=== PATIENT | female | born 1965 | race Hispanic/Latino ===

== ENCOUNTER 2016-08-16 17:20 | Emergency (ER) | payer MEDICAID, OTHER ==
--- NOTE | 2016-08-16 20:30 | Emergency Department Report ---
HPI - General Chief Complaint: Seizure Time Seen by Provider: 08/16/16 20:25 - HPI HPI: This is a 51-year-old female presents to the emergency department by EMS from [facility], where she is being treated for psychiatric reasons, with complaint of 2 witnessed seizures this afternoon. The first one was about 1 PM and the second one was at 2 PM. Both were witnessed by staff member who is currently bedside. Patient is currently awake and alert and says her last known seizures prior to today were about 3-4 months ago. She does have a seizure history. She took her Keppra this morning and then received 3 mg IM of Ativan in route by EMS. Patient has an aura in which she "hears a train" prior to the seizures and she complained of this. She has a history of diabetes and hypertension. No recent travel. Her primary care doctor is a Dr. Keller. Patient's current complaint is that she is very fatigued. The staff member says that the patient did not have a significant postictal period. The seizure appeared most consistent with the patient drooling and having some upper extremity and shaking of the head. ED Past Medical Hx - Past Medical History Hx Hypertension: Yes Hx Diabetes: Yes Hx Seizures: Yes - Social History Smoking Status: Never Smoker ED Review of Systems ROS: Stated complaint: SEIZURE Other details as noted in HPI Comment: All other systems reviewed and negative Constitutional: denies: chills, fever Eyes: denies: eye pain, eye discharge, vision change ENT: denies: ear pain, throat pain Respiratory: denies: cough, shortness of breath, wheezing Cardiovascular: denies: chest pain, palpitations Gastrointestinal: denies: abdominal pain, nausea, diarrhea Genitourinary: denies: urgency, dysuria, discharge Musculoskeletal: denies: back pain, joint swelling, arthralgia Skin: denies: rash, lesions Neurological: other (Seizure). denies: headache, weakness, paresthesias Physical Exam - Physical Exam Vital Signs: Vital Signs 08/16/16 18:27 Temperature 98.3 F Pulse Rate 92 H Respiratory 16 Rate Blood Pressure 129/78 [Right] O2 Sat by Pulse 97 Oximetry Physical Exam: GENERAL: The patient is well-developed well-nourished. HEENT: Normocephalic. Atraumatic. Extraocular motions are intact. Patient has moist mucous membranes. Pupils equal reactive to light bilaterally. Oropharynx clear. Tongue is midline. NECK: Supple. Trachea is midline. CHEST/LUNGS: Clear to auscultation. There is no respiratory distress noted. HEART/CARDIOVASCULAR: Regular. There is no tachycardia. There is no gallop rub or murmur. ABDOMEN: Abdomen is soft, nontender. Patient has normal bowel sounds. There is no abdominal distention. Morbidly obese habitus. SKIN: There is no rash. There is no edema. There is no diaphoresis. NEURO: The patient is awake, alert, and oriented. The patient is cooperative. The patient has no focal neurologic deficits. The patient has normal speech. Cranial nerves II through XII grossly intact. MUSCULOSKELETAL: There is no tenderness or deformity. There is no limitation range of motion. There is no evidence of acute injury. ED Course Vital Signs 08/16/16 18:27 Temperature 98.3 F Pulse Rate 92 H Respiratory 16 Rate Blood Pressure 129/78 [Right] O2 Sat by Pulse 97 Oximetry ED Medical Decision Making - Lab Data Result diagrams: 08/16/16 20:55 08/16/16 20:55 - EKG Data -: EKG Interpreted by Ia EKG shows normal: sinus rhythm, axis, intervals, QRS complexes, ST-T waves Rate: normal - EKG Data When compared to previous EKG there are: previous EKG unavailable Interpretation: normal EKG - Medical Decision Making This is a 51-year-old female presents the emergency department after 2 witnessed seizures earlier today, one hour apart. She has not had any seizure activity since 2 PM, 8 hours ago. She does have a history of seizures and is on Keppra. Patient has been worked up with physical exam, labs and EKG. EKG does not show any signs of ST elevation [place], ischemia or dysrhythmia. Patient's labs of been unremarkable including no signs of infection, electrolyte abnormalities, renal insufficiency, glucose abnormalities. She has normal thyroid function. No urinary tract infection. Patient giving a loading dose of Keppra. Patient has been reevaluated multiple times over multiple hours and has not had any further seizure activity or any neurological deficits. No focal , motor deficits. Cranial nerves intact. Vital signs stable throughout her ED course. Patient says she has a primary care doctor for follow-up. She'll be sent back to [facility] at this time but will be encouraged to return to the emergency department immediately with any further seizure activity or any acute distress. - Differential Diagnosis epilepsy, dysrhythmia, electrolyte abnormalities, hypothyroidism Critical Care Time: No Critical care attestation.: If time is entered above; I have spent that time in minutes in the direct care of this critically ill patient, excluding procedure time. ED Disposition Clinical Impression: Seizure Disposition: DISCHARGED TO HOME OR SELFCARE Is pt being admited?: No Does the pt Need Aspirin: No Condition: Stable Instructions: Epilepsy (ED) Additional Instructions: Please follow-up with your primary care doctor in the next few days if possible. At least follow-up once you're done with your anchor workup. Return to the emergency department with any further seizures or any acute distress. Referrals: PRASHANTH FERNANDEZ MD [Other] - 3-5 Days Time of Disposition: 22:07
[2016-08-16 21:06] LABS: Urine Drugs of Abuse Note Disclamer
[2016-08-16 21:16] LABS: Basophils % (Auto) 0.4 % (0.0-1.8); Eosinophils % (Auto) 4.1 % (0.0-4.3); Hematocrit 36.4 % (30.3-42.9); Hemoglobin 11.9 gm/dl (10.1-14.3); Mean Corpuscular HGB Conc 33 % (30-34); Mean Corpuscular Hemoglobin 28 pg (28-32); Mean Corpuscular Volume 87 fl (79-97); Platelet Count 275 K/mm3 (140-440); Red Cell Distribution Width 14.3 % (13.2-15.2); White Blood Count 10.4 K/mm3 (4.5-11.0)
[2016-08-16 21:20] LABS: Bilirubin,Urine NEG (Negative); Blood,Urine NEG (Negative); Ketones,Urine NEG (Negative); Leukocyte Esterase,Urine NEG (Negative); Mucus,Urine 1+ /HPF; Nitrite,Urine NEG (Negative); Protein,Urine <15 mg/dL mg/dL (Negative); Urobilinogen,Urine < 2.0 mg/dL (<2.0)
[2016-08-16 21:42] LABS: Alanine Aminotransferase 22 units/L (7-56); Albumin 3.5 g/dL (3.9-5); Albumin/Globulin Ratio 1.2 %; Alkaline Phosphatase 42 units/L (35-129); Bilirubin,Total 0.4 mg/dL (0.1-1.2); Blood Urea Nitrogen 12 mg/dL (7-17); Calcium 8.6 mg/dL (8.4-10.2); Carbon Dioxide 26 mmol/L (22-30); Chloride 102.6 mmol/L (98-107); Glucose 112 mg/dL (65-100); Potassium 3.9 mmol/L (3.6-5.0); Sodium 142 mmol/L (137-145); Total Protein 6.5 g/dL (6.3-8.2)
[2016-08-16 21:46] LABS: Anion Gap 17 mmol/L
[2016-08-16] MEDS ORDERED: KEPPRA PO ONE (22:07)
[2016-08-17 00:43] VITALS: BP 132/80
== END 2016-08-17 00:44 | disposition home or self-care (01) ==
LOC: ED 17:20
DX: R56.9 Unspecified convulsions (principal); I10 Essential (primary) hypertension; E11.9 Type 2 diabetes mellitus without complications
CPT/HCPCS: 36415; 80053; 80307; 81001; 84443; 84484; 85025; 93005; 93010; 99284; G0480; 80320